=== PATIENT | female | born 1950 | race Caucasian/White ===

== ENCOUNTER → 2023-10-04 | Outpatient (CLI) | payer MEDICARE, OTHER | END | disposition home or self-care (01) | LOC: RESCLI 03:12 | PROVIDERS: ATTEND Internal Medicine | DX: E03.9 Hypothyroidism, unspecified (principal); E78.00 Pure hypercholesterolemia, unspecified; I10 Essential (primary) hypertension; J45.909 Unspecified asthma, uncomplicated; D49.7 Neoplasm of unspecified behavior of endocrine glands and other parts of nervous system; E55.9 Vitamin D deficiency, unspecified; N95.2 Postmenopausal atrophic vaginitis; I25.10 Atherosclerotic heart disease of native coronary artery without angina pectoris; R21 Rash and other nonspecific skin eruption; E63.9 Nutritional deficiency, unspecified; E78.5 Hyperlipidemia, unspecified; Z98.890 Other specified postprocedural states; Z79.899 Other long term (current) drug therapy; Z88.8 Allergy status to other drugs, medicaments and biological substances ==